=== PATIENT | female | born 1985 | race African-American/Black ===

== ENCOUNTER 2017-12-01 08:53 | Emergency (ER) | payer OTHER, MEDICAID ==
[~2017-12-01] VITALS: Ht 167.6 cm; Wt 90.0 kg
[2017-12-01 08:55] VITALS: BP 152/90
== END 2017-12-01 11:13 | disposition home or self-care (01) ==
LOC: ER 08:53
DX: M54.5 Low back pain (principal); V43.52XA Car driver injured in collision with other type car in traffic accident, initial encounter; Y93.89 Activity, other specified; Y92.411 Interstate highway as the place of occurrence of the external cause
CPT/HCPCS: 81025; 99283